=== PATIENT | female | born 1985 | race African-American/Black ===

== ENCOUNTER → 2016-05-29 | Outpatient (CLI) | payer OTHER ==
[2016-05-01 04:41] VITALS: BP 158/95
[~2016-05-29] MED LIST: CYCL10TA2 PO
[2016-05-29 17:39] LABS: BASO % 0 % (0-3); EOS % 6 % (0-3); HEMATOCRIT 39.2 % (36.0-47.0); HEMOGLOBIN 12.8 g/dL (12.0-15.5); LYMPH # 2.4 x10^3/uL (1.0-4.8); LYMPH % 27 % (24-48); MEAN CORPUSCULAR HEMOGLOBIN 26 pg (25-35); MEAN CORPUSCULAR HGB CONC 33 g/dL (31-37); MEAN CORPUSCULAR VOLUME 79 fL (79-100); MONO % 7 % (0-9); NEUT % 60 % (31-73); PLATELET COUNT 395 x10^3/uL (140-400); RED BLOOD COUNT 4.94 x10^6/uL (3.50-5.40); RED CELL DISTRIBUTION WIDTH 14.4 % (11.5-14.5)
[2016-05-29 18:18] LABS: FREE T4 0.93 ng/dL (0.76-1.46)
[2016-05-29 18:27] LABS: SICKLE CELL SCREEN NEGATIVE
== END | disposition home or self-care (01) ==
LOC: LAB 16:44
PROVIDERS: ATTEND Obstetrics & Gynecology
DX: Z32.01 Encounter for pregnancy test, result positive (principal)
CPT/HCPCS: 36415; 84439; 84443; 85027; 85660; 86593; 86703; 86762; 86900; 86901; 87340; 87341

== ENCOUNTER → 2016-08-20 | Outpatient (CLI) | payer OTHER ==
[2016-05-01 04:41] VITALS: BP 158/95
--- NOTE | 2016-08-20 16:03 | KCIC ---
Ultrasound more than or equal to 14 weeks Indication: survey. There is a single live fetus in a cephalic presentation. The placenta is posterior and low lying. heart rate is recorded at 150 beats per minute. Cervical length is 6 centimeters. Amniotic fluid volume appears normal. Biometry measurements are as follows: Biparietal diameter 4.8 centimeters 20 weeks 3 days Head circumference 17.9 centimeters 20 weeks 2 days Abdominal circumference 15.1 centimeters 20 weeks 2 days Femur length 3.5 centimeters 21 weeks 1 day Average gestational age 20 weeks 4 days Impression: Single live IUP 20.1 weeks gestational age. Estimated date of confinement sonographically is 01/03/2017. Note is made of a low lying posterior placenta. Follow-up can be performed. Electronically signed by: Wilfredo Aguero MD (Aug 20, 2016 16:02:33)
== END | disposition home or self-care (01) ==
LOC: KCIC US 15:08
PROVIDERS: ATTEND Obstetrics & Gynecology
DX: Z36 Encounter for antenatal screening of mother (principal); Z3A.20 20 weeks gestation of pregnancy
CPT/HCPCS: 76805